=== PATIENT | female | born 1995 | race Caucasian/White ===

== ENCOUNTER 2018-02-07 22:02 | Emergency (ER) | payer OTHER ==
[~2018-02-07] VITALS: Ht 152.4 cm; Wt 68.5 kg
[2018-02-07 22:05] VITALS: BP 118/78; Ht 152.4 cm; Wt 68.5 kg
== END 2018-02-08 00:02 | disposition home or self-care (01) ==
LOC: ED 22:02
DX: O26.892 Other specified pregnancy related conditions, second trimester (principal); R51 Headache; Z3A.16 16 weeks gestation of pregnancy
CPT/HCPCS: J2765; J7030